=== PATIENT | female | born 1975 | race Caucasian/White ===

== ENCOUNTER 2022-05-13 12:49 | Outpatient (CLI) | payer OTHER, SELFPAY ==
--- NOTE | ~2022-05-13 | XR_ITS ---
EXAMINATION: XR ankle LT min 3V DATE: 05/13/2022 13:03 INDICATION: Left ankle pain TECHNIQUE: Anteroposterior, lateral, mortise, and additional oblique view of the ankle were obtained. COMPARISON: None FINDINGS: There is lateral soft tissue swelling of ankle. There is minimal heterotopic ossification p rojecting distal to the lateral malleolus. Bone alignment is normal. IMPRESSION: 1. Possible avulsion injury of the lateral malleolus. Reviewed, dictated and finalized at location A.
== END 2022-05-13 12:50 | disposition home or self-care (01) ==
PROVIDERS: Visit Provider Orthopaedic Surgery
DX: M25.572 Pain in left ankle and joints of left foot (principal)
CPT/HCPCS: 73610

== ENCOUNTER 2023-06-23 12:44 | Outpatient (CLI) | payer OTHER, SELFPAY ==
--- NOTE | ~2023-06-23 | XR_ITS ---
EXAMINATION: XR shoulder RT min 2V INDICATION: Right shoulder pain TECHNIQUE: Four views of the right shoulder are submitted. COMPARISON: None FINDINGS: Normal alignment. No fracture. Glenohumeral and acromioclavicular joint spaces are normal. Soft tissues are unremarkable. IMPRESSION: 1. No acute osseous abnormality. Reviewed, dictated and finalized at location B. [employer]
== END 2023-06-23 12:45 | disposition home or self-care (01) ==
LOC: ANHBWCIMG 12:46
PROVIDERS: Visit Provider Orthopaedic Surgery
DX: M25.511 Pain in right shoulder (principal)
CPT/HCPCS: 73030